=== PATIENT | female | born 1970 | race Caucasian/White ===

== ENCOUNTER 2017-08-18 05:57 | Day surgery (SDC) | payer BC ==
[~2017-08-18 05:57] MED LIST: Lactated Ringers 1,000 ML IV SCH; Lidocaine 1%/Sod Bicarbonate in NS 8.4% 1 ML Syringe IDERM PRN; Sodium Chloride 0.9% 10 ML Syringe FLUSH PRN
[2017-08-18] MEDS ORDERED: ceFAZolin 1 GM Vial ONE ×3 (06:09→07:29)
[2017-08-18] MEDS ORDERED: Iodine/Sodium Iodide 2% Tincture 30 ML Bottle ONE (06:09)
[2017-08-18] MEDS ORDERED: Ondansetron 4 MG/2 ML SDV ONE (06:22)
[2017-08-18] MEDS ORDERED: Propofol 200 MG/20 ML SDV ONE ×5 (06:23→08:56)
[2017-08-18] MEDS ORDERED: fentaNYL 100 MCG/2 ML SDV ONE ×2 (06:23→10:12)
[2017-08-18] MEDS ORDERED: Midazolam 1 MG/ML 2 ML SDV ONE (06:23)
[2017-08-18] MEDS ORDERED: Lidocaine 1% 4 ML ONE (06:23)
--- NOTE | 2017-08-18 06:33 | PCM.PREANE ---
Preanesthetic Assessment - Anesthesia/Transfusion/Family Hx Anesthesia History: Prior Anesthesia Without Reaction Family History of Anesthesia Reaction: No Transfusion History: No Prior Transfusion(s) - Review of Systems General: No Symptoms Pulmonary: No Symptoms Cardiovascular: No Symptoms Gastrointestinal: No Symptoms Neurological: No Symptoms Other: Reports: Depression, Anxiety - Physical Assessment NPO Status Date: 08/17/17 NPO Status Time: 00:00 Pulse: 71 O2 Sat by Pulse Oximetry: 98 Respiratory Rate: 16 Blood Pressure: 127/78 Temperature: 36.9 C Height: 1.83 m Weight: 118.433 kg ASA Class: 2 Mental Status: Alert & Oriented x3 Dentition: Reports: Normal Dentition, [place](s) Thyro-Mental Finger Breadths: 3 Mouth Opening Finger Breadths: 3 ROM/Head Extension: Full Lungs: Clear to Auscultation, Normal Respiratory Effort Cardiovascular: Regular Rate, Regular Rhythm, No Murmurs - Lab Values: Laboratory Last Values MRSA (PCR) Negative 07/25/17 10:11 - Allergies Allergies/Adverse Reactions: Allergies Allergy/AdvReac Type Severity Reaction Status Date / Time oxytocin [From Pitocin] Allergy Hypotension Verified 08/15/17 10:58 - Blood Blood Available: No Product(s) Available: None - Anesthesia Plan Pre-Op Medication Ordered: None - Acknowledgements Anesthesia Type Planned: Spinal, Regional Block (femoral block for post op pain control) Pt an Appropriate Candidate for the Planned Anesthesia: Yes Alternatives and Risks of Anesthesia Discussed w Pt/Guardian: Yes Pt/Guardian Understands and Agrees with Anesthesia Plan: Yes PreAnesthesia Questionnaire - Past Health History Medical/Surgical History: Denies Medical/Surgical History HEENT History: Reports: Impaired Vision Cardiovascular History: Reports: Arrhythmia, Blood Clots/VTE/DVT, Other (See Below) Other Cardiovascular History: varicose veins Respiratory History: Reports: None Gastrointestinal History: Reports: None, GERD Genitourinary History: Reports: None 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: 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 Musculoskeletal History: Reports: Osteoarthritis, Other (See Below) Other Musculoskeletal History: stress fracture to right foot, right ankle surgery Neurological History: Reports: None Psychiatric History: Reports: Anxiety, Depression Endocrine/Metabolic History: Reports: None Hematologic History: Reports: None Immunologic History: Reports: None Oncologic (Cancer) History: Reports: None Dermatologic History: Reports: None - Past Surgical History Head Surgeries/Procedures: Reports: None HEENT Surgical History: Reports: None Cardiovascular Surgical History: Reports: Vascular Surgery, Other (See Below) Other Cardiovascular Surgeries/Procedures: ablation Respiratory Surgical History: Reports: None GI Surgical History: Reports: Appendectomy Female Surgical History: Reports: None Male Surgical History: Reports: None Endocrine Surgical History: Reports: None Neurological Surgical History: Reports: None Musculoskeletal Surgical History: Reports: None Dermatological Surgical History: Reports: None - SUBSTANCE USE Smoking Status *Q: Current Some Day Smoker Tobacco Use Within Last Twelve Months: Cigarettes Second Hand Smoke Exposure: No Days Per Week of Alcohol Use: 7 Number of Drinks Per Day: 1 Total Drinks Per Week: 7 Recreational Drug Use History: No - HOME MEDS Home Medications: Home Meds Naproxen Sodium [Aleve] 1 - 2 tab PO BID PRN 03/22/14 [History] Aspirin [Halfprin] 81 mg PO DAILY 08/15/17 [History] Cetirizine [ZyrTEC] 10 mg PO DAILY PRN 08/15/17 [History] Cholecalciferol (Vitamin D3) [Vitamin D3] 5,000 unit PO DAILY 08/15/17 [History] Citalopram Hydrobromide [Celexa] 40 mg PO DAILY 08/15/17 [History] LORazepam [Ativan] 0.5 mg PO Q8H PRN 08/15/17 [History] Levonorgestrel [Mirena] 1 unit VAG ASDIRECTED 08/15/17 [History] Multivitamin [Daily Esha] 1 tab PO DAILY 08/15/17 [History] - CURRENT (IN HOUSE) MEDS Current Meds: Current Medications Lactated Ringer's (Ringers, Lactated) 1,000 mls @ 125 mls/hr IV ASDIRECTED JOHNNY Stop: 08/18/17 23:00 Lidocaine/Sodium Bicarbonate (Buffered Lidocaine 1% In Ns 8.4%) 0.25 ml IDERM ONETIME PRN PRN Reason: Prior to IV Start Stop: 08/18/17 18:00 Sodium Chloride (Saline Flush) 10 ml FLUSH ASDIRECTED PRN PRN Reason: Keep Vein Open Stop: 08/18/17 18:00 Discontinued Medications Bupivacaine HCl (Marcaine 0.25%) Confirm Administered Dose 30 ml .ROUTE .STK- MED ONE Stop: 08/18/17 06:10 Cefazolin Sodium (Ancef) Confirm Administered Dose 2 gm .ROUTE .STK-MED ONE Stop: 08/18/17 06:24 Cefazolin Sodium (Ancef) Confirm Administered Dose 2 gm .ROUTE .STK-MED ONE Stop: 08/18/17 06:10 Fentanyl (Sublimaze) Confirm Administered Dose 100 mcg .ROUTE .STK-MED ONE Stop: 08/18/17 06:24 Lidocaine HCl (Xylocaine-Mpf 1%) Confirm Administered Dose 4 mls @ as directed .ROUTE .STK-MED ONE Stop: 08/18/17 06:24 Iodine (Iodine 2% Mild Tincture) Confirm Administered Dose 30 ml .ROUTE .STK- MED ONE Stop: 08/18/17 06:10 Midazolam HCl (Versed 1 Mg/Ml) Confirm Administered Dose 2 mg .ROUTE .STK-MED ONE Stop: 08/18/17 06:24 Ondansetron HCl (Zofran) Confirm Administered Dose 4 mg .ROUTE .STK-MED ONE Stop: 08/18/17 06:23 Propofol (Diprivan 20 Ml) Confirm Administered Dose 200 mg .ROUTE .STK-MED ONE Stop: 08/18/17 06:24 Tranexamic Acid (Cyklokapron) Confirm Administered Dose 1,000 mg .ROUTE .STK- MED ONE Stop: 08/18/17 06:10 Triamcinolone Acetonide (Kenalog-40) Confirm Administered Dose 80 mg .ROUTE .STK -MED ONE Stop: 08/18/17 06:10 Vancomycin HCl (Vancomycin) Confirm Administered Dose 1 gm .ROUTE .STK-MED ONE Stop: 08/18/17 06:10
[2017-08-18] MEDS ORDERED: Naloxone 0.4 MG/ML SDV IVPUSH PRN (06:55)
[2017-08-18] MEDS ORDERED: diphenhydrAMINE 50 MG/ML SDV IVPUSH PRN (06:55)
[2017-08-18] MEDS ORDERED: Sennosides 8.6 MG Tab PO PRN (06:55)
[2017-08-18] MEDS ORDERED: Bisacodyl 5 MG Tab PO PRN (06:55)
[2017-08-18] MEDS ORDERED: Magnesium Hydroxide 400 MG/5 ML Susp 30 ML Cup PO PRN (06:55)
[2017-08-18] MEDS ORDERED: Morphine 2 MG/ML Syringe IVPUSH PRN (06:55)
[2017-08-18] MEDS ORDERED: Lactated Ringers 1,000 ML ONE ×2 (07:29→08:52)
[2017-08-18] MEDS ORDERED: EPINEPHrine 1 MG/ML SDV ONE (08:09)
[2017-08-18] MEDS ORDERED: Ropivacaine 0.5% 5 MG/ML 30 ML SDV ONE (08:09)
--- NOTE | 2017-08-18 08:10 | PCM.CONS ---
H&P History of Present Illness - General Date of Service: 08/18/17 Admit Problem/Dx: Admission Diagnosis/Problem Admission Diagnosis/Problem Osteoarthritis of knee Source of Information: Patient, Old Records, Provider, RN History Limitations: Reports: No Limitations - History of Present Illness Initial Comments - Free Text/Narative: Zlueyka Vaca is a 47 yo female patient of Dr. Menjivar who is post-operative day 0 of left TKA and right knee cortisone injection. Hospital medicine was consulted for post-operative medical care. At this time she is resting comfortably in bed. Pain is controlled. She denies any chest pain, shortness of breath, palpitations, or vomiting. She did have some mild nausea post- operatively which has since resolved. She carries a history of: Arrhythmias, prior blood clots, GERD, osteoarthritis, anxiety, depression. She is a current occasional smoker. She is a full code. Her primary care provider is Nena Brito at [facility]. Left Knee Pain Score (Numeric/FACES): 3 - Related Data Allergies/Adverse Reactions: Allergies Allergy/AdvReac Type Severity Reaction Status Date / Time oxytocin [From Pitocin] AdvReac Hypotension Verified 08/18/17 08:42 Home Medications: Home Meds Naproxen Sodium [Aleve] 1 - 2 tab PO BID PRN 03/22/14 [History] Aspirin [Halfprin] 81 mg PO DAILY 08/15/17 [History] Cetirizine [ZyrTEC] 10 mg PO DAILY PRN 08/15/17 [History] Cholecalciferol (Vitamin D3) [Vitamin D3] 5,000 unit PO DAILY 08/15/17 [History] Citalopram Hydrobromide [Celexa] 40 mg PO DAILY 08/15/17 [History] LORazepam [Ativan] 0.5 mg PO Q8H PRN 08/15/17 [History] Levonorgestrel [Mirena] 1 unit VAG ASDIRECTED 08/15/17 [History] Multivitamin [Daily Esha] 1 tab PO DAILY 08/15/17 [History] Past Medical History - Past Health History Medical/Surgical History: Denies Medical/Surgical History HEENT History: Reports: Impaired Vision Cardiovascular History: Reports: Arrhythmia, Blood Clots/VTE/DVT, Other (See Below) Other Cardiovascular History: varicose veins Respiratory History: Reports: None Gastrointestinal History: Reports: None, GERD Genitourinary History: Reports: None SERVICES TECH History: Reports: None Musculoskeletal History: Reports: Osteoarthritis, Other (See Below) Other Musculoskeletal History: stress fracture to right foot, right ankle surgery Neurological History: Reports: None Psychiatric History: Reports: Anxiety, Depression Endocrine/Metabolic History: Reports: None Hematologic History: Reports: None Immunologic History: Reports: None Oncologic (Cancer) History: Reports: None Dermatologic History: Reports: None - Past Surgical History Head Surgeries/Procedures: Reports: None HEENT Surgical History: Reports: None Cardiovascular Surgical History: Reports: Vascular Surgery, Other (See Below) Other Cardiovascular Surgeries/Procedures: ablation Respiratory Surgical History: Reports: None GI Surgical History: Reports: Appendectomy Female Surgical History: Reports: None Endocrine Surgical History: Reports: None Neurological Surgical History: Reports: None Musculoskeletal Surgical History: Reports: None Dermatological Surgical History: Reports: None Social & Family History - Tobacco Use Smoking Status *Q: Current Some Day Smoker Years of Tobacco use: 10 Second Hand Smoke Exposure: No - Caffeine Use Caffeine Use: Reports: Soda - Alcohol Use Days Per Week of Alcohol Use: 7 Number of Drinks Per Day: 1 Total Drinks Per Week: 7 - Recreational Drug Use Recreational Drug Use: No H&P Review of Systems - Review of Systems: Review Of Systems: See Below General: Reports: No Symptoms. Denies: Fever, Chills HEENT: Reports: No Symptoms Pulmonary: Reports: No Symptoms. Denies: Shortness of Breath, Wheezing Cardiovascular: Reports: No Symptoms. Denies: Chest Pain, Palpitations, Dyspnea on Exertion, Edema Gastrointestinal: Reports: No Symptoms. Denies: Abdominal Pain, Constipation, Diarrhea, Nausea, Vomiting Genitourinary: Reports: No Symptoms Musculoskeletal: Reports: Joint Pain (left knee ), Muscle Pain (left calf ) Skin: Reports: No Symptoms Psychiatric: Reports: No Symptoms Neurological: Reports: No Symptoms Hematologic/Lymphatic: Reports: No Symptoms Immunologic: Reports: No Symptoms Exam - Exam Exam: See Below - Vital Signs Vital Signs: Last Vital Signs Temp 98.5 F 08/18/17 06:39 Pulse 71 08/18/17 06:39 Resp 16 08/18/17 06:39 BP 127/78 08/18/17 06:39 Pulse Ox 98 08/18/17 06:39 Weight: 261 lb - Exam Quality Assessment: Urinary Catheter, DVT Prophylaxis General: Alert, Oriented, Cooperative. No: Mild Distress HEENT: PERRLA, Hearing Intact, Mucosa Moist & [place], Nares Patent, Normal Nasal Septum, Posterior Pharynx Clear, Conjunctiva Clear, EOMI, EACs Clear, TMs Clear Neck: Supple, Trachea Midline Lungs: Clear to Auscultation, Normal Respiratory Effort Cardiovascular: Regular Rate, Regular Rhythm GI/Abdominal Exam: Normal Bowel Sounds, Soft, Non-Tender, No Organomegaly, No Distention, No Abnormal Bruit, No Mass, Pelvis Stable (Female) Exam: Deferred Rectal (Female) Exam: Deferred Back Exam: Normal Inspection, Full Range of Motion Extremities: No Pedal Edema, Normal Capillary Refill, Other (ALAN bandage in place on left knee. Bandage is dry and intact. Cooling pack in place. ) Peripheral Pulses: 2+: Radial (L), Radial (R), Posterior Tibial (R), Dorsalis Pedis (L), Dorsalis Pedis (R) Skin: Warm, Dry, Intact Neurological: Cranial Nerves Intact (grossly ) Neuro Extensive - Mental Status: Alert, Oriented x3, Normal Mood/Affect, Normal Cognition Psychiatric: Alert, Normal Affect, Normal Mood Consult PN Assessment/Plan POD#: 0 Procedures: Procedures ASSAY OF TROPONIN QUANT (03/22/14) CHEST X-RAY 1 VIEW FRONTAL (03/22/14) COMPLETE CBC W/AUTO DIFF WBC (03/22/14) COMPREHEN METABOLIC PANEL (03/22/14) ELECTROCARDIOGRAM TRACING (03/22/14) EMERGENCY DEPT VISIT (03/22/14) FIBRIN DEGRADATION QUANT (03/22/14) HELICOBACTER PYLORI ANTIBODY (03/22/14) MRI JOINT LWR EXTR W/O&W/DYE (08/11/17) ROUTINE VENIPUNCTURE (03/22/14) THER/PROPH/DIAG INJ IV PUSH (03/22/14) X-RAY EXAM L-S SPINE 2/3 VWS (03/04/14) X-RAY EXAM OF FINGER(S) (03/04/14) (1) S/P total knee arthroplasty SNOMED Code(s): 1352703493077, 6104318310922 Code(s): Z96.659 - PRESENCE OF UNSPECIFIED ARTIFICIAL KNEE JOINT Priority: High Current Visit: Yes Qualifiers: Laterality: left Qualified Code(s): Z96.652 - Presence of left artificial knee joint (2) Osteoarthritis SNOMED Code(s): 730019303 Code(s): M19.90 - UNSPECIFIED OSTEOARTHRITIS, UNSPECIFIED SITE Priority: High Current Visit: Yes Qualifiers: Osteoarthritis location: knee Osteoarthritis type: primary Laterality: bilateral Qualified Code(s): M17.0 - Bilateral primary osteoarthritis of knee (3) GERD (gastroesophageal reflux disease) SNOMED Code(s): 115812555 Code(s): K21.9 - GASTRO-ESOPHAGEAL REFLUX DISEASE WITHOUT ESOPHAGITIS Priority: Low Current Visit: No Qualifiers: Esophagitis presence: esophagitis presence not specified Qualified Code(s) : K21.9 - Gastro-esophageal reflux disease without esophagitis (4) Anxiety SNOMED Code(s): 99807960 Code(s): F41.9 - ANXIETY DISORDER, UNSPECIFIED Priority: Low Current Visit: No (5) Other specified depressive episodes SNOMED Code(s): 97075687 Code(s): F32.89 - OTHER SPECIFIED DEPRESSIVE EPISODES Priority: Low Current Visit: No Problem List Initiated/Reviewed/Updated: Yes Plan: I/P: Acute: S/P left total knee arthroplasty - post-operative day 0 -DVT prophylaxis and pain management per primary care team -PT/OT -IS/RT -Monitor oxygen saturation -Titrate oxygen as needed -Vital signs stable -Monitor labs Osteoarthritis of bilateral knee joints -Pain management per primary care team S/P right knee cortisone injection -Pain management per primary team Chronic: Hx/o prior blood clots arrhythmia GERD Anxiety Depression Plan: CM for discharge planning GI prophylaxis Home medications as indicated Other orders as listed above Routine AM labs She is a full code. Her PCP is Nena Brito at [facility] Thank you for allowing us to participate in the care of this patient!! Requesting Provider: Dr. Menjivar Date Consult Requested: 08/18/17 Reason for Consult: Post-operative medical care Patient History Reviewed: Yes Admission H&P Reviewed: Yes Time Spent (in minutes): 30
[2017-08-18] MEDS: Bupivacaine 0.25% 30 ML SDV ONE ×5 (08:25→09:07)
[2017-08-18] MEDS: Morphine 8 MG, EPINEPHrine 0.3 MG, Cefuroxime 750 MG, Ketorolac 30 MG, Sodium Chloride ... ONE ×10 (08:26→08:27)
[2017-08-18] MEDS: Vancomycin 1 GM SDV ONE ×2 (08:26→08:30)
[2017-08-18] MEDS: Triamcinolone Acetonide 40 MG/ML 1 ML MDV ONE ×3 (08:27→09:07)
[2017-08-18] MEDS ORDERED: Ketorolac 30 MG/ML SDV ONE (08:56)
[2017-08-18] MEDS ORDERED: LORazepam 0.5 MG Tab PO PRN (09:03)
[2017-08-18] MEDS ORDERED: Loratadine 10 MG Tab PO PRN (09:03)
--- NOTE | 2017-08-18 09:27 | PCM.POSTAN ---
POST ANESTHESIA ASSESSMENT - MENTAL STATUS Mental Status: Alert, Oriented - VITAL SIGNS Pulse Rate: 91 SaO2: 97 Resp Rate: 20 Blood Pressure: 114/73 Temperature: 36.6 C - RESPIRATORY Respiratory Status: Respiratory Rate WNL, Airway Patent, O2 Saturation Stable, Supplemental Oxygen - CARDIOVASCULAR CV Status: Pulse Rate WNL, Blood Pressure Stable - GASTROINTESTINAL GI Status: No Symptoms - PAIN Pain Score: 0 - POST OP HYDRATION Hydration Status: Adequate & Stable - OBSERVATIONS Free Text/Narrative:: no anesthesia complications noted
[2017-08-18] MEDS ORDERED: Acetaminophen 1,000 MG/100 ML Infusion Bottle IV SCH (10:00)
[2017-08-18] MEDS ORDERED: oxyCODONE ER 10 MG TAB.ER PO SCH (10:00)
[2017-08-18] MEDS ORDERED: fentaNYL 100 MCG/2 ML SDV IVPUSH PRN (10:09)
[2017-08-18] MEDS ORDERED: Pregabalin 25 MG Cap PO SCH (10:15)
--- NOTE | 2017-08-18 10:31 | PCM.SN ---
- Free Text/Narrative Note: Left selective femoral nerve block at the adductor canal for post-procedure pain control under US guidance requested by Dr. Menjivar. Time Out: 936 Start: 936 118/76 70 97% 18 End: 949 109/74 97% 71 16 Chart reviewed. Consent signed. Questions answered. Appropriate monitors applied. Time out performed. Left mid-shaft femur identified with ultrasound, scanning medially of femur, the femoral artery in the adductor canal visualized , and the femoral nerve located laterally to the artery. The skin was prepped lateral to the ultrasound probe with chlorahexadine. The 21ga 4 insulated block needle was inserted under direct ultrasound guidance into the adductor canal. 20mL of 0.5% ropivacaine with 1:200,000 epinephrine was injected circumferentially around the nerve with intermittent negative aspiration noted. Patient tolerated the procedure well. See pictures on progress note and vital signs on nurses notes. Block completed in PACU. Eugenio Matta CRNA
--- NOTE | 2017-08-18 10:59 | CR ---
Left knee: AP and lateral views of the left knee were obtained. Comparison: Previous MRI left knee study of 08/11/17. Knee prosthesis is seen. This has been recently placed. Components are aligned. Soft tissue air is noted from the surgical procedure. Underlying bony structures are intact. Impression: 1. Satisfactory radiographic appearance of recently placed left knee prosthesis. Diagnostic code #2
[2017-08-18] MEDS: Acetaminophen/oxyCODONE 325-5 MG Tab PO PRN ×3 (12:31→20:56)
[2017-08-18] MEDS: ceFAZolin 2 GM in Premix Bag 1 BAG IV SCH ×2 (14:32→22:32)
[2017-08-18] MEDS: ceFAZolin 1 GM in Premix Bag 1 BAG IV SCH ×2 (14:33→22:33)
[2017-08-18] MEDS: Ketorolac 15 MG/ML SDV IVPUSH PRN ×2 (15:54→22:37)
[2017-08-18] MEDS: Cyclobenzaprine 10 MG Tab PO PRN (17:44)
[2017-08-18] MEDS: Famotidine 20 MG Tab PO SCH (20:55)
[2017-08-18] MEDS: Docusate Sodium 100 MG Cap PO SCH (20:56)
[2017-08-19] MEDS ORDERED: Rivaroxaban 10 MG Tab PO SCH (09:00)
[2017-08-19] MEDS ORDERED: Citalopram 20 MG Tab PO SCH (09:00)
[2017-08-19] MEDS ORDERED: Cholecalciferol (Vitamin D3) 1,000 Unit Tab PO SCH (09:00)
--- NOTE | 2017-08-19 09:40 | PCM48HPAN ---
Post Anesthesia Note - EVALUATION WITHIN 48HRS OF ANESTHETIC Vital Signs in Normal Range: Yes Patient Participated in Evaluation: Yes Respiratory Function Stable: Yes Airway Patent: Yes Cardiovascular Function Stable: Yes Hydration Status Stable: Yes Pain Control Satisfactory: Yes (Is having discomfort- encouraged to keep up with pain pills) Nausea and Vomiting Control Satisfactory: Yes Mental Status Recovered: Yes Pulse Rate: 76 Resp Rate: 16 Temperature: 99.1 F Blood Pressure: 134/75
--- NOTE | 2017-08-19 10:02 | PCM.CONSN ---
- General Info Date of Service: 08/19/17 Admission Dx/Problem (Free Text): Admission Diagnosis/Problem Admission Diagnosis/Problem Osteoarthritis of knee POD #[address] Menjivar Doing well, pain controlled, ambulating, voiding, no nausea or other concerns. Plans DC home with today. Functional Status: Reports: Pain Controlled, Tolerating Diet, Ambulating, Urinating, Incentive Spirometry. Denies: New Symptoms - Review of Systems General: Reports: No Symptoms HEENT: Reports: No Symptoms Pulmonary: Reports: No Symptoms Cardiovascular: Reports: No Symptoms Gastrointestinal: Reports: No Symptoms Genitourinary: Reports: No Symptoms Musculoskeletal: Reports: Leg Pain Skin: Reports: No Symptoms Neurological: Reports: No Symptoms Psychiatric: Reports: No Symptoms - Patient Data Vitals - Most Recent: Last Vital Signs Temp 99.1 F 08/19/17 09:40 Pulse 76 08/19/17 09:40 Resp 16 08/19/17 09:40 BP 134/75 08/19/17 09:40 Pulse Ox 93 L 08/19/17 00:19 Weight - Most Recent: 261 lb I&O - Last 24 Hours: Intake & Output 08/18/17 08/19/17 08/19/17 22:59 06:59 14:59 Intake Total 1180 Balance 1180 Lab Results Last 24 Hours: Laboratory Results - last 24 hr 08/19/17 Range/Units 06:41 WBC 7.30 (3.98-10.04) K/mm3 RBC 3.34 L (3.98-5.22) M/mm3 Hgb 10.8 L (11.2-15.7) gm/L Hct 32.3 L (34.1-44.9) % MCV 96.7 H (79.4-94.8) fl MCH 32.3 H (25.6-32.2) pg MCHC 33.4 (32.2-35.5) g/dl RDW Std Deviation 43.1 (36.4-46.3) fL Plt Count 267 (182-369) K/mm3 MPV 9.7 (9.4-12.3) fl Med Orders - Current: Current Medications Acetaminophen (Ofirmev) 1,000 mg IV ONETIME [facility] Stop: 08/19/17 12:00 Last Admin: 08/18/17 10:09 Dose: 1,000 mg Bisacodyl (Dulcolax) 5 mg PO DAILY PRN PRN Reason: Constipation Cholecalciferol (Vitamin D3) 5,000 units PO DAILY [facility] Citalopram Hydrobromide (Celexa) 40 mg PO DAILY [facility] Cyclobenzaprine HCl (Flexeril) 10 mg PO TID PRN PRN Reason: Spasms Last Admin: 08/18/17 17:44 Dose: 10 mg Diphenhydramine HCl (Benadryl) 25 mg IVPUSH Q4H PRN PRN Reason: Nausea Docusate Sodium (Colace) 100 mg PO BID [facility] Last Admin: 08/18/17 20:56 Dose: 100 mg Famotidine (Pepcid) 20 mg PO Q12H [facility] Last Admin: 08/18/17 20:55 Dose: 20 mg Ketorolac Tromethamine (Toradol) 15 mg IVPUSH Q6H PRN PRN Reason: Pain Last Admin: 08/18/17 22:37 Dose: 15 mg Loratadine (Claritin) 10 mg PO DAILY PRN PRN Reason: Allergies Lorazepam (Ativan) 0.5 mg PO Q8H PRN PRN Reason: Anxiety Magnesium Hydroxide (Milk Of Magnesia) 30 ml PO BID PRN PRN Reason: Constipation Morphine Sulfate (Morphine) 2 mg IVPUSH Q2H PRN PRN Reason: Breakthrough Pain Naloxone HCl (Narcan) 0.1 mg IVPUSH Q5M PRN PRN Reason: Oversedation Oxycodone/Acetaminophen (Percocet 325-5 Mg) 1 - 2 tab PO Q4H PRN PRN Reason: Pain Last Admin: 08/18/17 20:56 Dose: 2 tab Rivaroxaban (Xarelto) 10 mg PO DAILY [facility] Senna (Senna) 8.6 mg PO BID PRN PRN Reason: Constipation Discontinued Medications Bupivacaine HCl (Marcaine 0.25%) Confirm Administered Dose 30 ml .ROUTE .STK- MED ONE Stop: 08/18/17 06:10 Last Admin: 08/18/17 09:07 Dose: 4 ml Cefazolin Sodium (Ancef) Confirm Administered Dose 2 gm .ROUTE .STK-MED ONE Stop: 08/18/17 06:24 Last Admin: 08/18/17 08:24 Dose: 2 gm Cefazolin Sodium (Ancef) Confirm Administered Dose 2 gm .ROUTE .STK-MED ONE Stop: 08/18/17 06:10 Cefazolin Sodium (Ancef) Confirm Administered Dose 1 gm .ROUTE .STK-MED ONE Stop: 08/18/17 07:30 Morphine Sulfate 8 mg/Epinephrine HCl 0.3 mg/Cefuroxime Sodium 750 mg/Ketorolac Tromethamine 30 mg/Sodium Chloride 27.9 ml 0 mg .XX ONETIME ONE Stop: 08/18/17 07:31 Last Admin: 08/18/17 08:27 Dose: 788.3 mg Epinephrine HCl (Adrenalin) Confirm Administered Dose 1 mg .ROUTE .STK-MED ONE Stop: 08/18/17 08:10 Fentanyl (Sublimaze) Confirm Administered Dose 100 mcg .ROUTE .STK-MED ONE Stop: 08/18/17 06:24 Fentanyl (Sublimaze) 50 mcg IVPUSH Q5M PRN PRN Reason: PAIN Stop: 08/18/17 12:30 Fentanyl (Sublimaze) Confirm Administered Dose 100 mcg .ROUTE .STK-MED ONE Stop: 08/18/17 10:13 Last Admin: 08/18/17 11:41 Dose: Not Given Lactated Ringer's (Ringers, Lactated) 1,000 mls @ 125 mls/hr IV ASDIRECTED [facility] Stop: 08/18/17 23:00 Last Admin: 08/18/17 06:15 Dose: 125 mls/hr Lidocaine HCl (Xylocaine-Mpf 1%) Confirm Administered Dose 4 mls @ as directed .ROUTE .STK-MED ONE Stop: 08/18/17 06:24 Cefazolin Sodium/Dextrose 2 gm (/ Premix) 50 mls @ 100 mls/hr IV Q8H [facility] Stop: 08/19/17 06:59 Last Admin: 08/18/17 22:32 Dose: 100 mls/hr Lactated Ringer's (Ringers, Lactated) Confirm Administered Dose 1,000 mls @ as directed .ROUTE .STK-MED ONE Stop: 08/18/17 07:30 Cefazolin Sodium/Dextrose 1 gm (/ Premix) 50 mls @ 100 mls/hr IV Q8H [facility] Stop: 08/19/17 06:59 Last Admin: 08/18/17 22:33 Dose: 100 mls/hr Lactated Ringer's (Ringers, Lactated) Confirm Administered Dose 1,000 mls @ as directed .ROUTE .STK-MED ONE Stop: 08/18/17 08:53 Iodine (Iodine 2% Mild Tincture) Confirm Administered Dose 30 ml .ROUTE .STK- MED ONE Stop: 08/18/17 06:10 Last Admin: 08/18/17 08:21 Dose: 18 ml Ketorolac Tromethamine (Toradol) Confirm Administered Dose 30 mg .ROUTE .STK- MED ONE Stop: 08/18/17 08:57 Levonorgestrel (Mirena) each IY ASDIRECTED [facility] Lidocaine/Sodium Bicarbonate (Buffered Lidocaine 1% In Ns 8.4%) 0.25 ml IDERM ONETIME PRN PRN Reason: Prior to IV Start Stop: 08/18/17 18:00 Last Admin: 08/18/17 06:14 Dose: 0.25 ml Midazolam HCl (Versed 1 Mg/Ml) Confirm Administered Dose 2 mg .ROUTE .[facility]-MED ONE Stop: 08/18/17 06:24 Ondansetron HCl (Zofran) Confirm Administered Dose 4 mg .ROUTE .STK-MED ONE Stop: 08/18/17 06:23 Oxycodone HCl (Oxycontin) 10 mg PO ONETIME [facility] Stop: 08/18/17 11:00 Last Admin: 08/18/17 10:34 Dose: 10 mg Pregabalin (Lyrica) 50 mg PO ONETIME [facility] Stop: 08/18/17 12:00 Last Admin: 08/18/17 10:13 Dose: 50 mg Propofol (Diprivan 20 Ml) Confirm Administered Dose 200 mg .ROUTE .STK-MED ONE Stop: 08/18/17 06:24 Propofol (Diprivan 20 Ml) Confirm Administered Dose 200 mg .ROUTE .STK-MED ONE Stop: 08/18/17 07:47 Propofol (Diprivan 20 Ml) Confirm Administered Dose 200 mg .ROUTE .STK-MED ONE Stop: 08/18/17 08:10 Propofol (Diprivan 20 Ml) Confirm Administered Dose 200 mg .ROUTE .STK-MED ONE Stop: 08/18/17 08:32 Propofol (Diprivan 20 Ml) Confirm Administered Dose 200 mg .ROUTE .STK-MED ONE Stop: 08/18/17 08:57 Ropivacaine (Naropin 0.5%) Confirm Administered Dose 30 ml .ROUTE .STK-MED ONE Stop: 08/18/17 08:10 Sodium Chloride (Saline Flush) 10 ml FLUSH ASDIRECTED PRN PRN Reason: Keep Vein Open Stop: 08/18/17 18:00 Tranexamic Acid (Cyklokapron) Confirm Administered Dose 1,000 mg .ROUTE .STK- MED ONE Stop: 08/18/17 06:10 Last Admin: 08/18/17 08:35 Dose: 1,000 mg Triamcinolone Acetonide (Kenalog-40) Confirm Administered Dose 80 mg .ROUTE .STK -MED ONE Stop: 08/18/17 06:10 Last Admin: 08/18/17 09:07 Dose: 80 mg Vancomycin HCl (Vancomycin) Confirm Administered Dose 1 gm .ROUTE .STK-MED ONE Stop: 08/18/17 06:10 Last Admin: 08/18/17 08:30 Dose: 1 gm - Exam Quality Assessment: DVT Prophylaxis General: Alert, Oriented, Cooperative, No Acute Distress HEENT: Pupils Equal, EOMI, Mucous Membr. Moist/[place]: Supple Lungs: Clear to Auscultation, Normal Respiratory Effort Cardiovascular: Regular Rate, Regular Rhythm GI/Abdominal Exam: Normal Bowel Sounds, Soft, Non-Tender (Female) Exam: Deferred Extremities: No Pedal Edema, Normal Capillary Refill, Other (teds, SCD and ice to knee) Peripheral Pulses: 2+: Dorsalis Pedis (L), Dorsalis Pedis (R) Neurological: No New Focal Deficit Psy/Mental Status: Alert, Normal Affect, Normal Mood Consult PN Assessment/Plan POD#: 1 Procedures: Procedures ASSAY OF TROPONIN QUANT (03/22/14) CHEST X-RAY 1 VIEW FRONTAL (03/22/14) COMPLETE CBC W/AUTO DIFF WBC (03/22/14) COMPREHEN METABOLIC PANEL (03/22/14) ELECTROCARDIOGRAM TRACING (03/22/14) EMERGENCY DEPT VISIT (03/22/14) FIBRIN DEGRADATION QUANT (03/22/14) HELICOBACTER PYLORI ANTIBODY (03/22/14) MRI JOINT LWR EXTR W/O&W/DYE (08/11/17) ROUTINE VENIPUNCTURE (03/22/14) THER/PROPH/DIAG INJ IV PUSH (03/22/14) X-RAY EXAM L-S SPINE 2/3 VWS (03/04/14) X-RAY EXAM OF FINGER(S) (03/04/14) (1) S/P total knee arthroplasty SNOMED Code(s): 9392133933664, 707320244, 2748399330043 Code(s): Z96.659 - PRESENCE OF UNSPECIFIED ARTIFICIAL KNEE JOINT Priority: High Current Visit: Yes Qualifiers: Laterality: left Qualified Code(s): Z96.652 - Presence of left artificial knee joint (2) Osteoarthritis SNOMED Code(s): 446107270 Code(s): M19.90 - UNSPECIFIED OSTEOARTHRITIS, UNSPECIFIED SITE Priority: High Current Visit: Yes Qualifiers: Osteoarthritis location: knee Osteoarthritis type: primary Laterality: bilateral Qualified Code(s): M17.0 - Bilateral primary osteoarthritis of knee Problem List Initiated/Reviewed/Updated: Yes My Orders Last 24 Hours: My Active Orders 08/19/17 10:02 Ready for Discharge [RC] PER UNIT ROUTINE Plan: I/P: POD #1, Lt TKA with Dr. Menjivar--- doing well -Pain management and DVT prophylax per primary team -RT/IS -PT/OT -Hgb this am is 10.8 -Doing well, VSS. Chronic conditions: Stable and of no concerns this morning for hospitalist team. GI prophylax CM for assist with DC home OK from Hospitalist standpoint for DC home today with family. Relayed recommendations to primary team.
[2017-08-19] MEDS: ceFAZolin 2 GM in Premix Bag 1 BAG IV SCH (10:10)
[2017-08-19] MEDS: ceFAZolin 1 GM in Premix Bag 1 BAG IV SCH (10:10)
[2017-08-19] MEDS: Famotidine 20 MG Tab PO SCH (10:18)
[2017-08-19] MEDS: Ketorolac 15 MG/ML SDV IVPUSH PRN (10:18)
[2017-08-19] MEDS: Docusate Sodium 100 MG Cap PO SCH (10:18)
[2017-08-19] MEDS: Acetaminophen/oxyCODONE 325-5 MG Tab PO PRN (11:23)
[2017-08-19] MEDS: Cyclobenzaprine 10 MG Tab PO PRN (11:23)
--- NOTE | 2017-08-25 09:37 | PCM.SURGPN ---
- General Info Date of Service: 08/19/17 Functional Status: Reports: Pain Controlled, Tolerating Diet, Ambulating, Urinating, Incentive Spirometry. Denies: New Symptoms - Review of Systems Musculoskeletal: Reports: Other (The pt feels prepared for discharge to home.) - Patient Data Vitals - Most Recent: Last Vital Signs Temp 98.6 F 08/19/17 11:47 Pulse 82 08/19/17 11:47 Resp 20 08/19/17 11:47 BP 138/76 08/19/17 11:47 Pulse Ox 98 08/19/17 11:47 Weight - Most Recent: 261 lb Med Orders - Current: Current Medications Discontinued Medications Acetaminophen (Ofirmev) 1,000 mg IV ONETIME [facility] Stop: 08/19/17 12:00 Last Admin: 08/18/17 10:09 Dose: 1,000 mg Bisacodyl (Dulcolax) 5 mg PO DAILY PRN PRN Reason: Constipation Bupivacaine HCl (Marcaine 0.25%) Confirm Administered Dose 30 ml .ROUTE .STK- MED ONE Stop: 08/18/17 06:10 Last Admin: 08/18/17 09:07 Dose: 4 ml Cefazolin Sodium (Ancef) Confirm Administered Dose 2 gm .ROUTE .STK-MED ONE Stop: 08/18/17 06:24 Last Admin: 08/18/17 08:24 Dose: 2 gm Cefazolin Sodium (Ancef) Confirm Administered Dose 2 gm .ROUTE .STK-MED ONE Stop: 08/18/17 06:10 Cefazolin Sodium (Ancef) Confirm Administered Dose 1 gm .ROUTE .STK-MED ONE Stop: 08/18/17 07:30 Cholecalciferol (Vitamin D3) 5,000 units PO DAILY [facility] Last Admin: 08/19/17 10:18 Dose: 5,000 units Citalopram Hydrobromide (Celexa) 40 mg PO DAILY [facility] Last Admin: 08/19/17 10:18 Dose: 40 mg Morphine Sulfate 8 mg/Epinephrine HCl 0.3 mg/Cefuroxime Sodium 750 mg/Ketorolac Tromethamine 30 mg/Sodium Chloride 27.9 ml 0 mg .XX ONETIME ONE Stop: 08/18/17 07:31 Last Admin: 08/18/17 08:27 Dose: 788.3 mg Cyclobenzaprine HCl (Flexeril) 10 mg PO TID PRN PRN Reason: Spasms Last Admin: 08/19/17 11:23 Dose: 10 mg Diphenhydramine HCl (Benadryl) 25 mg IVPUSH Q4H PRN PRN Reason: Nausea Docusate Sodium (Colace) 100 mg PO BID [facility] Last Admin: 08/19/17 10:18 Dose: 100 mg Epinephrine HCl (Adrenalin) Confirm Administered Dose 1 mg .ROUTE .STK-MED ONE Stop: 08/18/17 08:10 Famotidine (Pepcid) 20 mg PO Q12H [facility] Last Admin: 08/19/17 10:18 Dose: 20 mg Fentanyl (Sublimaze) Confirm Administered Dose 100 mcg .ROUTE .STK-MED ONE Stop: 08/18/17 06:24 Fentanyl (Sublimaze) 50 mcg IVPUSH Q5M PRN PRN Reason: PAIN Stop: 08/18/17 12:30 Fentanyl (Sublimaze) Confirm Administered Dose 100 mcg .ROUTE .ST-MED ONE Stop: 08/18/17 10:13 Last Admin: 08/18/17 11:41 Dose: Not Given Lactated Ringer's (Ringers, Lactated) 1,000 mls @ 125 mls/hr IV ASDIRECTED [facility] Stop: 08/18/17 23:00 Last Admin: 08/18/17 06:15 Dose: 125 mls/hr Lidocaine HCl (Xylocaine-Mpf 1%) Confirm Administered Dose 4 mls @ as directed .ROUTE .STK-MED ONE Stop: 08/18/17 06:24 Cefazolin Sodium/Dextrose 2 gm (/ Premix) 50 mls @ 100 mls/hr IV Q8H [facility] Stop: 08/19/17 06:59 Last Admin: 08/19/17 10:10 Dose: Not Given Lactated Ringer's (Ringers, Lactated) Confirm Administered Dose 1,000 mls @ as directed .ROUTE .STK-MED ONE Stop: 08/18/17 07:30 Cefazolin Sodium/Dextrose 1 gm (/ Premix) 50 mls @ 100 mls/hr IV Q8H [facility] Stop: 08/19/17 06:59 Last Admin: 08/19/17 10:10 Dose: Not Given Lactated Ringer's (Ringers, Lactated) Confirm Administered Dose 1,000 mls @ as directed .ROUTE .STK-MED ONE Stop: 08/18/17 08:53 Iodine (Iodine 2% Mild Tincture) Confirm Administered Dose 30 ml .ROUTE .STK- MED ONE Stop: 08/18/17 06:10 Last Admin: 08/18/17 08:21 Dose: 18 ml Ketorolac Tromethamine (Toradol) 15 mg IVPUSH Q6H PRN PRN Reason: Pain Last Admin: 08/19/17 10:18 Dose: 15 mg Ketorolac Tromethamine (Toradol) Confirm Administered Dose 30 mg .ROUTE .STK- MED ONE Stop: 08/18/17 08:57 Levonorgestrel (Mirena) each IY ASDIRECTED [facility] Lidocaine/Sodium Bicarbonate (Buffered Lidocaine 1% In Ns 8.4%) 0.25 ml IDERM ONETIME PRN PRN Reason: Prior to IV Start Stop: 08/18/17 18:00 Last Admin: 08/18/17 06:14 Dose: 0.25 ml Loratadine (Claritin) 10 mg PO DAILY PRN PRN Reason: Allergies Lorazepam (Ativan) 0.5 mg PO Q8H PRN PRN Reason: Anxiety Magnesium Hydroxide (Milk Of Magnesia) 30 ml PO BID PRN PRN Reason: Constipation Midazolam HCl (Versed 1 Mg/Ml) Confirm Administered Dose 2 mg .ROUTE .STK-MED ONE Stop: 08/18/17 06:24 Morphine Sulfate (Morphine) 2 mg IVPUSH Q2H PRN PRN Reason: Breakthrough Pain Naloxone HCl (Narcan) 0.1 mg IVPUSH Q5M PRN PRN Reason: Oversedation Ondansetron HCl (Zofran) Confirm Administered Dose 4 mg .ROUTE .STK-MED ONE Stop: 08/18/17 06:23 Oxycodone HCl (Oxycontin) 10 mg PO ONETIME [facility] Stop: 08/18/17 11:00 Last Admin: 08/18/17 10:34 Dose: 10 mg Oxycodone/Acetaminophen (Percocet 325-5 Mg) 1 - 2 tab PO Q4H PRN PRN Reason: Pain Last Admin: 08/19/17 11:23 Dose: 2 tab Pregabalin (Lyrica) 50 mg PO ONETIME [facility] Stop: 08/18/17 12:00 Last Admin: 08/18/17 10:13 Dose: 50 mg Propofol (Diprivan 20 Ml) Confirm Administered Dose 200 mg .ROUTE .STK-MED ONE Stop: 08/18/17 06:24 Propofol (Diprivan 20 Ml) Confirm Administered Dose 200 mg .ROUTE .STK-MED ONE Stop: 08/18/17 07:47 Propofol (Diprivan 20 Ml) Confirm Administered Dose 200 mg .ROUTE .STK-MED ONE Stop: 08/18/17 08:10 Propofol (Diprivan 20 Ml) Confirm Administered Dose 200 mg .ROUTE .STK-MED ONE Stop: 08/18/17 08:32 Propofol (Diprivan 20 Ml) Confirm Administered Dose 200 mg .ROUTE .STK-MED ONE Stop: 08/18/17 08:57 Rivaroxaban (Xarelto) 10 mg PO DAILY [facility] Last Admin: 08/19/17 11:55 Dose: 10 mg Ropivacaine (Naropin 0.5%) Confirm Administered Dose 30 ml .ROUTE .STK-MED ONE Stop: 08/18/17 08:10 Senna (Senna) 8.6 mg PO BID PRN PRN Reason: Constipation Sodium Chloride (Saline Flush) 10 ml FLUSH ASDIRECTED PRN PRN Reason: Keep Vein Open Stop: 08/18/17 18:00 Tranexamic Acid (Cyklokapron) Confirm Administered Dose 1,000 mg .ROUTE .STK- MED ONE Stop: 08/18/17 06:10 Last Admin: 08/18/17 08:35 Dose: 1,000 mg Triamcinolone Acetonide (Kenalog-40) Confirm Administered Dose 80 mg .ROUTE .STK -MED ONE Stop: 08/18/17 06:10 Last Admin: 08/18/17 09:07 Dose: 80 mg Vancomycin HCl (Vancomycin) Confirm Administered Dose 1 gm .ROUTE .STK-MED ONE Stop: 08/18/17 06:10 Last Admin: 08/18/17 08:30 Dose: 1 gm - Exam Wound/Incisions: Dressing Dry and Intact General: Alert, Cooperative, No Acute Distress Lungs: Normal Respiratory Effort Extremities: Other (NVS intact for BLE. Aracely's negative BLE.) - Problem List Review Problem List Initiated/Reviewed/Updated: Yes - Assessment Assessment (Free Text/Narrative):: POD#1 - left TKA with right knee cortisone injection - Plan Plan (Free Text/Narrative):: 1. Hgb 10.8. 2. Discharge to home today. 3. Outpatient P.T. 4. Frequent mobility, Jose Ulloa. The pt's case was discussed with Dr. Menjivar today.
--- NOTE | 2017-08-25 09:41 | PCM.DCSUM1 ---
Discharge Summary - Hospital Course Brief History: Zuleyka is a 47 yo female who underwent left TKA with right knee cortisone injection with Dr. Menjivar on 08-18-2017. The procedure was completed under spinal anesthesia with MAC. The pt tolerated the procedure well and was admitted to the Medical-Surgical Unit. The pt received Ancef mariaelena-operatively. She participated in P.T. and O.T. and progressed well. She was allowed to WBAT and used a FWW for mobility. The pt's surgical wound was dressed with a Mepilex dressing and remained clean and dry. On POD#1, the pt was started on Xarelto 10mg PO daily for VTE prophylaxis. The pt used TEDs and SCDs also. On POD#1, the pt's hemoglobin was 10.8. Medical management was provided by the Hospitalist service and the pt's hospital course was uneventful. On POD#1, the pt was deemed appropriate for discharge to home with her family. - Discharge Data Discharge Date: 08/19/17 Discharge Disposition: Home, Self-Care 01 Condition: Good - Patient Summary/Data Consults: Consultations 08/18/17 06:54 OT Evaluation and Treatment [CONS] Routine PT Evaluation and Treatment [CONS] Routine 08/18/17 06:55 Consult to Physician [CONS] Routine - Patient Instructions Diet: Usual Diet as Tolerated Activity: Apply Ice, As Tolerated, Elevate Extremity, Full Weight Bearing Driving: Do Not Drive Showering/Bathing: May Shower Wound/Incision Care: Keep Operative Site/Wound Site Clean and Dry, Do NOT Change Dressing Notify Provider of: Fever, Increased Pain, Swelling and Redness, Drainage, Nausea and/or Vomiting Other/Special Instructions: Please get up and moving around every hour while awake. Have help with walking as needed and use your walker. Frequent walks helps to prevent blood clots. Please take the blood thinner medication (Xarelto ) daily. Wear the ESCOBAR hose during the day and you may remove these at night. Attend physical therapy. Work hard on range of motion at home too. Elevate the limb to decrease swelling. Use the ice machine often. Use the pain medication as needed. The medication may cause drowsiness and/or constipation. You could use a stool softener like docusate sodium or Colace 100mg twice daily and/or a laxative like Miralax daily. Contact your primary care provider for other instructions if you are constipated. Please try to wean from use of the pain medication as soon as able. Please leave the Mepilex dressing in place at the knee until follow-up at the Clinic next week. Increase protein intake in your diet. Please call the Clinic with questions or concerns [phone]. - Discharge Plan Prescriptions/Med Rec: Acetaminophen/oxyCODONE [Percocet 325-5 MG] 1 - 2 tab PO Q6H PRN #60 tablet PRN Reason: Pain Cyclobenzaprine [Flexeril] 10 mg PO TID PRN #40 tablet PRN Reason: Spasms Rivaroxaban [Xarelto] 10 mg PO DAILY #30 tablet Home Medications: Home Meds Cetirizine [ZyrTEC] 10 mg PO DAILY PRN 08/15/17 [History] Cholecalciferol (Vitamin D3) [Vitamin D3] 5,000 unit PO DAILY 08/15/17 [History] Citalopram Hydrobromide [Celexa] 40 mg PO DAILY 08/15/17 [History] LORazepam [Ativan] 0.5 mg PO Q8H PRN 08/15/17 [History] Levonorgestrel [Mirena] 1 unit VAG ASDIRECTED 08/15/17 [History] Multivitamin [Daily Esha] 1 tab PO DAILY 08/15/17 [History] Acetaminophen/oxyCODONE [Percocet 325-5 MG] 1 - 2 tab PO Q6H PRN #60 tablet [Rx] Bisacodyl [Dulcolax] 5 mg PO DAILY PRN tablet 08/18/17 [Rx] Cyclobenzaprine [Flexeril] 10 mg PO TID PRN #40 tablet 08/18/17 [Rx] Docusate Sodium [Colace] 100 mg PO BID cap 08/18/17 [Rx] Famotidine [Pepcid] 20 mg PO Q12H tablet 08/18/17 [Rx] Magnesium Hydroxide [Milk of Magnesia] 30 ml PO BID PRN cup 08/18/17 [Rx] Rivaroxaban [Xarelto] 10 mg PO DAILY #30 tablet 08/18/17 [Rx] Sennosides [Senna] 8.6 mg PO BID PRN tablet 08/18/17 [Rx] Patient Handouts: Total Knee Replacement, Care After, Total Knee Replacement Referrals: Nena Brito, MAT MACHINE OPERATOR [Primary Care Provider] - 08/29/17 10:30 am (Please check in at 10:15 AM.) Alee Sigala PA-C [Physician Program Development Manager] - (1. Follow-up with Alee Sigala PA-C on Saturday, August 26, 2017 at 11:45 am. 2. Follow-up with Alee Sigala PA-C on Saturday, September 02, 2017 at 10:45 am.) - Patient Data Vitals - Most Recent: Last Vital Signs Temp 98.6 F 08/19/17 11:47 Pulse 82 08/19/17 11:47 Resp 20 08/19/17 11:47 BP 138/76 08/19/17 11:47 Pulse Ox 98 08/19/17 11:47 Weight - Most Recent: 261 lb Med Orders - Current: Current Medications Discontinued Medications Acetaminophen (Ofirmev) 1,000 mg IV ONETIME [facility] Stop: 08/19/17 12:00 Last Admin: 08/18/17 10:09 Dose: 1,000 mg Bisacodyl (Dulcolax) 5 mg PO DAILY PRN PRN Reason: Constipation Bupivacaine HCl (Marcaine 0.25%) Confirm Administered Dose 30 ml .ROUTE .STK- MED ONE Stop: 08/18/17 06:10 Last Admin: 08/18/17 09:07 Dose: 4 ml Cefazolin Sodium (Ancef) Confirm Administered Dose 2 gm .ROUTE .STK-MED ONE Stop: 08/18/17 06:24 Last Admin: 08/18/17 08:24 Dose: 2 gm Cefazolin Sodium (Ancef) Confirm Administered Dose 2 gm .ROUTE .STK-MED ONE Stop: 08/18/17 06:10 Cefazolin Sodium (Ancef) Confirm Administered Dose 1 gm .ROUTE .STK-MED ONE Stop: 08/18/17 07:30 Cholecalciferol (Vitamin D3) 5,000 units PO DAILY [facility] Last Admin: 08/19/17 10:18 Dose: 5,000 units Citalopram Hydrobromide (Celexa) 40 mg PO DAILY [facility] Last Admin: 08/19/17 10:18 Dose: 40 mg Morphine Sulfate 8 mg/Epinephrine HCl 0.3 mg/Cefuroxime Sodium 750 mg/Ketorolac Tromethamine 30 mg/Sodium Chloride 27.9 ml 0 mg .XX ONETIME ONE Stop: 08/18/17 07:31 Last Admin: 08/18/17 08:27 Dose: 788.3 mg Cyclobenzaprine HCl (Flexeril) 10 mg PO TID PRN PRN Reason: Spasms Last Admin: 08/19/17 11:23 Dose: 10 mg Diphenhydramine HCl (Benadryl) 25 mg IVPUSH Q4H PRN PRN Reason: Nausea Docusate Sodium (Colace) 100 mg PO BID [facility] Last Admin: 08/19/17 10:18 Dose: 100 mg Epinephrine HCl (Adrenalin) Confirm Administered Dose 1 mg .ROUTE .STK-MED ONE Stop: 08/18/17 08:10 Famotidine (Pepcid) 20 mg PO Q12H [facility] Last Admin: 08/19/17 10:18 Dose: 20 mg Fentanyl (Sublimaze) Confirm Administered Dose 100 mcg .ROUTE .STK-MED ONE Stop: 08/18/17 06:24 Fentanyl (Sublimaze) 50 mcg IVPUSH Q5M PRN PRN Reason: PAIN Stop: 08/18/17 12:30 Fentanyl (Sublimaze) Confirm Administered Dose 100 mcg .ROUTE .STK-MED ONE Stop: 08/18/17 10:13 Last Admin: 08/18/17 11:41 Dose: Not Given Lactated Ringer's (Ringers, Lactated) 1,000 mls @ 125 mls/hr IV ASDIRECTED [facility] Stop: 08/18/17 23:00 Last Admin: 08/18/17 06:15 Dose: 125 mls/hr Lidocaine HCl (Xylocaine-Mpf 1%) Confirm Administered Dose 4 mls @ as directed .ROUTE .STK-MED ONE Stop: 08/18/17 06:24 Cefazolin Sodium/Dextrose 2 gm (/ Premix) 50 mls @ 100 mls/hr IV Q8H [facility] Stop: 08/19/17 06:59 Last Admin: 08/19/17 10:10 Dose: Not Given Lactated Ringer's (Ringers, Lactated) Confirm Administered Dose 1,000 mls @ as directed .ROUTE .STK-MED ONE Stop: 08/18/17 07:30 Cefazolin Sodium/Dextrose 1 gm (/ Premix) 50 mls @ 100 mls/hr IV Q8H [facility] Stop: 08/19/17 06:59 Last Admin: 08/19/17 10:10 Dose: Not Given Lactated Ringer's (Ringers, Lactated) Confirm Administered Dose 1,000 mls @ as directed .ROUTE .STK-MED ONE Stop: 08/18/17 08:53 Iodine (Iodine 2% Mild Tincture) Confirm Administered Dose 30 ml .ROUTE .STK- MED ONE Stop: 08/18/17 06:10 Last Admin: 08/18/17 08:21 Dose: 18 ml Ketorolac Tromethamine (Toradol) 15 mg IVPUSH Q6H PRN PRN Reason: Pain Last Admin: 08/19/17 10:18 Dose: 15 mg Ketorolac Tromethamine (Toradol) Confirm Administered Dose 30 mg .ROUTE .STK- MED ONE Stop: 08/18/17 08:57 Levonorgestrel (Mirena) each IY ASDIRECTED [facility] Lidocaine/Sodium Bicarbonate (Buffered Lidocaine 1% In Ns 8.4%) 0.25 ml IDERM ONETIME PRN PRN Reason: Prior to IV Start Stop: 08/18/17 18:00 Last Admin: 08/18/17 06:14 Dose: 0.25 ml Loratadine (Claritin) 10 mg PO DAILY PRN PRN Reason: Allergies Lorazepam (Ativan) 0.5 mg PO Q8H PRN PRN Reason: Anxiety Magnesium Hydroxide (Milk Of Magnesia) 30 ml PO BID PRN PRN Reason: Constipation Midazolam HCl (Versed 1 Mg/Ml) Confirm Administered Dose 2 mg .ROUTE .STK-MED ONE Stop: 08/18/17 06:24 Morphine Sulfate (Morphine) 2 mg IVPUSH Q2H PRN PRN Reason: Breakthrough Pain Naloxone HCl (Narcan) 0.1 mg IVPUSH Q5M PRN PRN Reason: Oversedation Ondansetron HCl (Zofran) Confirm Administered Dose 4 mg .ROUTE .STK-MED ONE Stop: 08/18/17 06:23 Oxycodone HCl (Oxycontin) 10 mg PO ONETIME [facility] Stop: 08/18/17 11:00 Last Admin: 08/18/17 10:34 Dose: 10 mg Oxycodone/Acetaminophen (Percocet 325-5 Mg) 1 - 2 tab PO Q4H PRN PRN Reason: Pain Last Admin: 08/19/17 11:23 Dose: 2 tab Pregabalin (Lyrica) 50 mg PO ONETIME [facility] Stop: 08/18/17 12:00 Last Admin: 08/18/17 10:13 Dose: 50 mg Propofol (Diprivan 20 Ml) Confirm Administered Dose 200 mg .ROUTE .STK-MED ONE Stop: 08/18/17 06:24 Propofol (Diprivan 20 Ml) Confirm Administered Dose 200 mg .ROUTE .STK-MED ONE Stop: 08/18/17 07:47 Propofol (Diprivan 20 Ml) Confirm Administered Dose 200 mg .ROUTE .STK-MED ONE Stop: 08/18/17 08:10 Propofol (Diprivan 20 Ml) Confirm Administered Dose 200 mg .ROUTE .STK-MED ONE Stop: 08/18/17 08:32 Propofol (Diprivan 20 Ml) Confirm Administered Dose 200 mg .ROUTE .STK-MED ONE Stop: 08/18/17 08:57 Rivaroxaban (Xarelto) 10 mg PO DAILY [facility] Last Admin: 08/19/17 11:55 Dose: 10 mg Ropivacaine (Naropin 0.5%) Confirm Administered Dose 30 ml .ROUTE .STK-MED ONE Stop: 08/18/17 08:10 Senna (Senna) 8.6 mg PO BID PRN PRN Reason: Constipation Sodium Chloride (Saline Flush) 10 ml FLUSH ASDIRECTED PRN PRN Reason: Keep Vein Open Stop: 08/18/17 18:00 Tranexamic Acid (Cyklokapron) Confirm Administered Dose 1,000 mg .ROUTE .STK- MED ONE Stop: 08/18/17 06:10 Last Admin: 08/18/17 08:35 Dose: 1,000 mg Triamcinolone Acetonide (Kenalog-40) Confirm Administered Dose 80 mg .ROUTE .STK -MED ONE Stop: 08/18/17 06:10 Last Admin: 08/18/17 09:07 Dose: 80 mg Vancomycin HCl (Vancomycin) Confirm Administered Dose 1 gm .ROUTE .STK-MED ONE Stop: 08/18/17 06:10 Last Admin: 08/18/17 08:30 Dose: 1 gm
--- NOTE | 2017-08-25 17:21 | PCM.OPNOTE ---
- General Post-Op/Procedure Note Date of Surgery/Procedure: 08/18/17 Operative Procedure(s): left total knee arthroplasty with right knee corticosteroid injection Pre Op Diagnosis: bilateral knee osteoarthrosis Post-Op Diagnosis: Same Anesthesia Technique: Local, MAC, Spinal Primary Surgeon: Nnamdi Menjivar Anesthesia Provider: Eugenio Matta Retail Shift Leader: Alee Sigala Retail Shift Leader: Tanya Catherine EBL in mLs: 500 Complications: None Condition: Good Free Text/Narrative:: size 6 femur and tibia 35x10 9mm press fit
--- NOTE | 2017-08-26 07:27 | OR ---
DATE OF OPERATION: 08/18/2017 SURGEON: Nnamdi Menjivar MD OPERATION PERFORMED: Left total knee arthroplasty with right knee corticosteroid injection. PREOPERATIVE DIAGNOSIS: Bilateral knee osteoarthrosis. POSTOPERATIVE DIAGNOSIS: Bilateral knee osteoarthrosis. ANESTHESIA: Local MAC with spinal. ANESTHESIA PROVIDER: Eugenio Matta CRNA. ASSISTANTS: Alee Sigala PA-C and Tanya Catherine LPN. ESTIMATED BLOOD LOSS: 500 mL. COMPLICATIONS: None. CONDITION: Stable. IMPLANTS: 1. [place] size 6 press-fit tibial base plate. 2. Rei size 6 CR press-fit femur. 3. [place] size 6, 9-mm CS polyethylene insert. 4. [place] size 35 x 10 mm press-fit asymmetric patella. DESCRIPTION OF PROCEDURE: The patient was identified in the preoperative holding area. Proper site was marked and identified by the surgeon. The patient was taken back to the operating theater. After adequate anesthesia, the patient's left lower extremity had a nonsterile tourniquet applied and was then sterilely prepped and draped in the usual sterile fashion. OR timeout was performed. The patient received 2 g IV Ancef. At this time, left lower extremity was exsanguinated. Tourniquet was insufflated to 300 mmHg. Standard medial parapatellar incision was made. Medial parapatellar arthrotomy was created. Deep fibers of the MCL were raised and anterior fat pad was resected. At this time, attention was turned to the patella. Patella measured 25, it was resected to a 13 for a 35 x 10 mm patella. Drill holes were then drilled and found to be in adequate position. The drill was then drilled in the distal femur and the intramedullary distal femoral cutting guide was then placed. 8 mm was resected off the distal femur, and was found to be an adequate resection. Sizing guide was placed. It was found to be a size 6 femur that was shown on the implant record at the beginning of this dictation. The drill holes were drilled for the epicondylar axis using [place] line and epicondyles as reference. At this time, the 4-in - 1 cutting block was placed. An anterior posterior and anterior and posterior chamfer cuts were then completed. The correct size box cut was then placed and the box cut was completed and found to be an adequate resection. Attention was turned to the tibia. The posterior medial lateral retractors were placed. The extramedullary tibial guide was placed. It was placed in the old footprint of the ACL. It was aligned with the center of the ankle and 0 degrees of slope, 9 mm was then resected off the unaffected lateral side. There was found to be an acceptable reduction. At this time, posterior osteophytes were removed along with medial and lateral meniscus. A trial implant was placed with a correct sized tibia that was mentioned at the beginning of the dictation. The patient's knee was brought through range of motion. The patella was tracking centrally and was stable to varus and valgus stress. Alignment was found to be roughly at 0 degrees. The tibia was stamped and drilled in proper rotation. The universal tibial base plate was press-fit in place. The femur was then press-fit into place and had good fit. The 9mm polyethylene insert was then placed. The patient's knee was brought into full extension. The patella was then cemented in place at this time. Tourniquet was deflated. One liter dilute Betadine solution was irrigated through the knee along with 3 L of pulse lavage irrigation with Ancef. Periarticular injection was then completed. The patient's knee was brought through a range of motion. Knee was found to be stable to varus valgus stress, the patella was tracking centrally with full range of motion. At this time, a #2 barbed suture was used for closure of the medial parapatellar arthrotomy. Topical tranexamic acid was placed. 2-0 Vicryl was used subcutaneously, a running 3-0 Monocryl was used subcuticularly. The patient tolerated the procedure well and was sent to the PACU in stable condition. After this procedure, under sterile technique, 2 mL of 40 mg of Kenalog and 4 mL of 0.25% Marcaine were injected to the right knee under sterile technique. The patient tolerated that as well. MMODAL /[id number] AMRITA
== END 2017-08-19 12:52 | disposition home or self-care (01) ==
LOC: JD.SDS 05:57 → JD.MS 05:59 → JD.SDS 08-19 12:52
PROVIDERS: ATTEND Orthopaedic Surgery
DX: M17.0 Bilateral primary osteoarthritis of knee (principal); Z88.8 Allergy status to other drugs, medicaments and biological substances; Z87.891 Personal history of nicotine dependence; Z79.899 Other long term (current) drug therapy
CPT/HCPCS: 20610; 27447; 36415; 64450; 73560; 80053; 85027; 87641; 97110; 97116; 97161; 97165; 97530; 97535; A9270; C1776; J0171; J0690; J0697; J1885; J2250; J2270; J2405; J2795; J3010; J3301; J3370; J3490; J7120; 01402; 64447; J2001; J2704

== ENCOUNTER 2019-08-16 15:59 | Emergency (ER) | payer BC ==
--- NOTE | 2019-08-16 16:48 | EDM.PDOC ---
ED HPI GENERAL MEDICAL PROBLEM - General Chief Complaint: Respiratory Problem Stated Complaint: COUGH AND BODY ACHES AND CHEST HEAVINESS Time Seen by Provider: 08/16/19 16:41 - History of Present Illness INITIAL COMMENTS - FREE TEXT/NARRATIVE: 49-year-old female presents the emergency room with chest pressure tightness and generally feeling awful. Starting of this last week the patient developed a bit of a cough and some chest pressure and tightness. Along with this she has had body aches. She has had some fevers but not sure how high. The patient continues to smoke she does have a positive family history of coronary artery disease. She has 2 brothers of had heart attacks in their 60s. Patient has not been treated for diabetes hypertension or hyperlipoidemia. She has had no nausea or vomiting - Related Data Allergies Allergy/AdvReac Type Severity Reaction Status Date / Time oxytocin [From Pitocin] AdvReac Hypotension Verified 08/16/19 16:10 Home Meds: Home Meds Cetirizine [ZyrTEC] 10 mg PO DAILY PRN 08/15/17 [History] Citalopram Hydrobromide [Celexa] 40 mg PO DAILY 08/15/17 [History] levonorgestreL [Mirena] 1 unit VAG ASDIRECTED 08/15/17 [History] Past Medical History - Past Health History Medical/Surgical History: Denies Medical/Surgical History HEENT History: Reports: Impaired Vision Cardiovascular History: Reports: Arrhythmia, Blood Clots/VTE/DVT, Other (See Below) Other Cardiovascular History: varicose veins Respiratory History: Reports: None Gastrointestinal History: Reports: None, GERD Genitourinary History: Reports: None CHARGING CAR OPERATOR History: Reports: None 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 CAR 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 Musculoskeletal History: Reports: Osteoarthritis, Other (See Below) Other Musculoskeletal History: stress fracture to right foot, right ankle surgery Neurological History: Reports: None Psychiatric History: Reports: Anxiety, Depression Endocrine/Metabolic History: Reports: None Hematologic History: Reports: None Immunologic History: Reports: None Oncologic (Cancer) History: Reports: None Dermatologic History: Reports: None - Past Surgical History Head Surgeries/Procedures: Reports: None HEENT Surgical History: Reports: None Cardiovascular Surgical History: Reports: Vascular Surgery, Other (See Below) Other Cardiovascular Surgeries/Procedures: ablation Respiratory Surgical History: Reports: None GI Surgical History: Reports: Appendectomy Female Surgical History: Reports: None Endocrine Surgical History: Reports: None Neurological Surgical History: Reports: None Musculoskeletal Surgical History: Reports: None, Knee Replacement Dermatological Surgical History: Reports: None Social & Family History - Family History Family Medical History: Noncontributory - Tobacco Use Smoking Status *Q: Never Smoker Second Hand Smoke Exposure: No - Caffeine Use Caffeine Use: Reports: Coffee - Recreational Drug Use Recreational Drug Use: No ED ROS GENERAL - Review of Systems Review Of Systems: See Below Constitutional: Reports: Chills, Malaise, Weakness. Denies: Night Sweats HEENT: Reports: No Symptoms Respiratory: Reports: Cough. Denies: Shortness of Breath, Sputum Cardiovascular: Reports: Other (Chest pressure and heaviness) Endocrine: Reports: No Symptoms GI/Abdominal: Reports: No Symptoms : Reports: No Symptoms Musculoskeletal: Reports: Other (Achy all over) Skin: Reports: No Symptoms Neurological: Reports: No Symptoms Psychiatric: Reports: No Symptoms Hematologic/Lymphatic: Reports: No Symptoms Immunologic: Reports: No Symptoms ED EXAM, GENERAL - Physical Exam Exam: See Below Exam Limited By: No Limitations General Appearance: Alert, No Apparent Distress Eye Exam: Bilateral Eye: Normal Inspection Ears: Normal External Exam, Normal Canal, Hearing Grossly Normal, Normal TMs Nose: Normal Inspection, Normal Mucosa, No Blood Throat/Mouth: Normal Inspection, Normal Lips, Normal Teeth, Normal Gums, Normal Oropharynx, Normal Voice, No Airway Compromise Head: Atraumatic, Normocephalic Neck: Normal Inspection, Supple, Non-Tender, Full Range of Motion. No: Lymphadenopathy (L), Lymphadenopathy (R) Respiratory/Chest: No Respiratory Distress, Lungs Clear, Normal Breath Sounds Cardiovascular: Regular Rate, Rhythm, No Edema, No Murmur GI/Abdominal: Normal Bowel Sounds, Soft, Non-Tender Back Exam: Normal Inspection. No: CVA Tenderness (L), CVA Tenderness (R) EKG INTERPRETATION EKG Date: 08/16/19 Rhythm: NSR [place]: Normal P-Wave: Absent (Normal P waves possible atrial enlargement) QRS: Normal ST-T: Normal QT: Normal EKG Interpretation Comments: Borderline EKG Course - Vital Signs Last Recorded V/S: Last Vital Signs Temp 37.1 C 08/16/19 16:05 Pulse 81 08/16/19 16:05 Resp 14 08/16/19 16:05 BP 152/82 H 08/16/19 16:05 Pulse Ox 99 08/16/19 16:05 - Orders/Labs/Meds Orders: Active Orders 24 hr Category Date Time Status EKG Documentation Completion [RC] STAT Care 08/16/19 16:49 Active Isolation [COMM] Routine Oth 08/16/19 16:35 Ordered Labs: Laboratory Tests 08/16/19 08/16/19 Range/Units 17:03 17:03 WBC 9.22 (3.98-10.04) K/mm3 RBC 4.63 (3.98-5.22) M/mm3 Hgb 14.6 D (11.2-15.7) gm/dl Hct 44.1 (34.1-44.9) % MCV 95.2 H (79.4-94.8) fl MCH 31.5 (25.6-32.2) pg MCHC 33.1 (32.2-35.5) g/dl RDW Std Deviation 43.8 (36.4-46.3) fL Plt Count 338 (182-369) K/mm3 MPV 10.3 (9.4-12.3) fl Neut % (Auto) 59.0 (34.0-71.1) % Lymph % (Auto) 26.6 (19.3-51.7) % [place] % (Auto) 8.9 (4.7-12.5) % Eos % (Auto) 4.6 (0.7-5.8) Baso % (Auto) 0.7 (0.1-1.2) % Neut # (Auto) 5.45 (1.56-6.13) K/mm3 Lymph # (Auto) 2.45 (1.18-3.74) K/mm3 [place] # (Auto) 0.82 H (0.24-0.36) K/mm3 Eos # (Auto) 0.42 H (0.04-0.36) K/mm3 Baso # (Auto) 0.06 (0.01-0.08) K/mm3 Sodium 140 (136-145) mEq/L Potassium 4.0 (3.5-5.1) mEq/L Chloride 105 (98-107) mEq/L Carbon Dioxide 25 (21-32) mEq/L Anion Gap 14.0 (5-15) BUN 18 (7-18) mg/dL Creatinine 0.7 (0.55-1.02) mg/dL Est Cr Clr Drug Dosing 106.27 mL/min Estimated GFR (MDRD) > 60 (>60) mL/min BUN/Creatinine Ratio 25.7 H (14-18) Glucose 107 H (74-106) mg/dL Calcium 9.0 (8.5-10.1) mg/dL Total Bilirubin 0.6 (0.2-1.0) mg/dL AST 13 L (15-37) U/L ALT 19 (14-59) U/L Alkaline Phosphatase 56 (46-116) U/L Troponin I < 0.017 (0.00-0.056) ng/mL Total Protein 7.0 (6.4-8.2) g/dl Albumin 3.4 (3.4-5.0) g/dl Globulin 3.6 gm/dL Albumin/Globulin Ratio 0.9 L (1-2) - Re-Assessments/Exams Free Text/Narrative Re-Assessment/Exam: 08/16/19 18:46 Influenza screen is negative chest x-ray shows no acute changes she has some scoliosis. Laboratory evaluation including a troponin is unremarkable. I believe most of her symptoms are most likely due to a viral type illness at this point she does not meet criteria for covid 19 testing per the recommendations of the [facility] recommendations dated August 11, 2019. The patient understands this and agrees to return to the emergency room if getting worse Departure - Departure Time of Disposition: 18:49 Disposition: Home, Self-Care 01 Clinical Impression: Viral syndrome - Discharge Information Referrals: Caroline García PA-C [Primary Care Provider] - Forms: ED Department Discharge, ED Return to Work/School Form Additional Instructions: Return to the emergency room with any questions problems or worsening symptoms. Push lots of fluids. Tylenol as needed for aches and pains and fever. Sepsis Event Note - Evaluation Sepsis Screening Result: No Definite Risk - Focused Exam Vital Signs: Vital Signs Temp Pulse Resp BP Pulse Ox 08/16/19 16:05 37.1 C 81 14 152/82 H 99 Date Exam was Performed: 08/16/19 Time Exam was Performed: 18:44 - My Orders Last 24 Hours: My Active Orders 08/16/19 16:35 Isolation [COMM] Routine 08/16/19 16:49 EKG Documentation Completion [RC] STAT - Assessment/Plan Last 24 Hours: My Active Orders 08/16/19 16:35 Isolation [COMM] Routine 08/16/19 16:49 EKG Documentation Completion [RC] STAT
--- NOTE | 2019-08-16 17:13 | CR ---
Chest: Portable view of the chest was obtained. Comparison: Prior chest x-ray of 03/22/14. Heart size is normal. Tortuous thoracic aorta is seen. Scoliosis is noted within the spine. Impression: 1. Scoliosis. 2. Nothing acute is seen on portable chest x-ray. Diagnostic code #2 This report was dictated in MDT
== END 2019-08-16 18:57 | disposition home or self-care (01) ==
LOC: JD.ED 15:59
DX: B34.9 Viral infection, unspecified (principal); K21.9 Gastro-esophageal reflux disease without esophagitis; F41.9 Anxiety disorder, unspecified; F32.9 Major depressive disorder, single episode, unspecified; Z79.899 Other long term (current) drug therapy; Z88.8 Allergy status to other drugs, medicaments and biological substances
CPT/HCPCS: 36415; 71045; 71045-26; 80053; 84484; 85025; 87804; 93005; 93010; 99282; 99285-25

== ENCOUNTER 2021-11-03 00:07 | Emergency (ER) | payer BC ==
[2021-11-03 01:30] LABS: ESTIMATED GFR > 60 mL/min (>60)
== END 2021-11-03 02:55 | disposition home or self-care (01) ==
LOC: JD.ED 00:07
DX: M79.651 Pain in right thigh (principal); F17.210 Nicotine dependence, cigarettes, uncomplicated; Z90.49 Acquired absence of other specified parts of digestive tract; Z79.899 Other long term (current) drug therapy; Z88.7 Allergy status to serum and vaccine
CPT/HCPCS: 36415; 80053; 85025; 85379; 85610; 93971-26-RT; 93971-RT; 99283; 99284-25

== ENCOUNTER 2024-09-10 08:44 | Emergency (ER) | payer BC ==
[2024-09-10] MEDS: Aspirin 81 MG Tab.Chew PO ONE (09:27)
[2024-09-10 09:40] LABS: BASOPHILS ABSOLUTE AUTO 0.1 K/mm3 (0.0-0.2); BASOPHILS PERCENT AUTO 1.1 % (0.0-1.0); EOSINOPHILS ABSOLUTE AUTO 0.1 K/mm3 (0.0-0.4); EOSINOPHILS PERCENT AUTO 1.5 % (0.0-6.0); HEMATOCRIT 40.8 % (37.0-47.0); HEMOGLOBIN 13.6 gm/dl (12.0-16.0); IMMATURE GRAN ABSOLUTE AUTO 0.03 K/mm3 (0.00-0.05); IMMATURE GRAN PERCENT AUTO 0.5 % (0.0-0.4); LYMPHOCYTES ABSOLUTE AUTO 1.7 K/mm3 (1.0-4.8); LYMPHOCYTES PERCENT AUTO 31.6 % (24.0-44.0); MEAN CORPUSCULAR HEMOGLOBIN 30.8 pg (28.0-32.0); MEAN CORPUSCULAR HGB CONC 33.3 g/dl (32.0-36.0); MEAN CORPUSCULAR VOLUME 92.5 fl (83.0-99.0); MEAN PLATELET VOLUME 10.2 fl (9.4-12.3); MONOCYTES ABSOLUTE AUTO 0.4 K/mm3 (0.0-0.8); MONOCYTES PERCENT AUTO 7.1 % (0.0-8.0); NEUTROPHILS ABSOLUTE AUTO 3.2 K/mm3 (1.8-7.7); NEUTROPHILS PERCENT AUTO 58.2 % (41.0-71.0); PLATELET COUNT,PLT 307 K/mm3 (150-400); RED BLOOD CELL COUNT 4.41 M/mm3 (4.10-5.30); WHITE BLOOD CELL COUNT,WBC 5.51 K/mm3 (3.9-11.3)
[2024-09-10] MEDS: Famotidine 20 MG/2 ML SDV IVPUSH ONE (09:47)
[2024-09-10 10:06] LABS: A/G RATIO 0.9 (1-2); ALBUMIN 3.5 g/dl (3.4-5.0); ANION GAP 11.8 (5-15); BUN/CREATININE RATIO 21.7 (14-18); CREATININE 0.6 mg/dL (0.55-1.02); EST CRCL DRUG DOSING (CG) 117.02 mL/min; POTASSIUM,K 4.8 mEq/L (3.5-5.1); PROTEIN TOTAL,TP 7.3 g/dl (6.4-8.2)
[2024-09-10] MEDS: Ketorolac 30 MG/ML SDV IVPUSH ONE (10:19)
== END 2024-09-10 10:57 | disposition home or self-care (01) ==
LOC: JD.ED 08:44
DX: R07.89 Other chest pain (principal); Z88.8 Allergy status to other drugs, medicaments and biological substances; Z79.899 Other long term (current) drug therapy
CPT/HCPCS: 36415; 71045; 80053; 84484; 85025; 93005; 96374; 96375; 99285; A9270; J1885; 93010; 99283